=== PATIENT | female | born 1950 | race Caucasian/White ===

== ENCOUNTER 2018-11-14 22:53 | Emergency (ER) | payer OTHER ==
[~2018-11-14] VITALS: Ht 162.6 cm; Wt 79.4 kg
[2018-11-14 23:34] VITALS: BP 137/68
[2018-11-15] MEDS ORDERED: methylPREDNISolone SOD SUCC 125 MG/2 ML VL IM ONE (02:30)
[2018-11-15] MEDS ORDERED: KETOROLAC TROMETH 60MG/2ML VIAL IM ONE (02:30)
== END 2018-11-15 03:50 | disposition home or self-care (01) ==
LOC: ER 22:56
DX: M54.5 Low back pain (principal); M54.6 Pain in thoracic spine; M62.830 Muscle spasm of back; Z88.1 Allergy status to other antibiotic agents; Z88.6 Allergy status to analgesic agent
CPT/HCPCS: 93005; 96372; 99283; J1885; J2930